=== PATIENT | female | born 1955 | race Caucasian/White ===

== ENCOUNTER → 2018-07-31 | Outpatient (CLI) | payer BC ==
[~2018-07-31] MED LIST: AMOX-559 PO; ASPI-1471 PO; BUPR-472 PO; DICY10CA11 PO; DIPH0.5S2 IM; OMEP40CA48 PO
== END ==
LOC: LAB 09:26
PROVIDERS: ATTEND Nurse Practitioner Primary Care
DX: R10.9 Unspecified abdominal pain (principal)
CPT/HCPCS: 87338